=== PATIENT | male | born 1975 | race African-American/Black ===

== ENCOUNTER → 2020-04-25 10:38 | Outpatient (CLI) | payer MEDICARE, MEDICAID, SELFPAY ==
--- NOTE | ~2020-04-25 | XR_ITS ---
EXAMINATION: XR knee LT min 4V DATE: 04/25/2020 11:13 INDICATION: Left knee pain TECHNIQUE: Four views of the left knee were obtained. COMPARISON: 02/12/2018 FINDINGS: Alignment is normal. No fracture or osteochondral lesion. There is moderate tricompartmenta l osteoarthritis characterized by tiny marginal osteophytes and subchondral cyst formation. No joint effusion/synovitis. Soft tissues are unremarkable. IMPRESSION: 1. Moderate osteoarthritis without acute abnormality. Reviewed, dictated and finalized at location A. 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
--- NOTE | ~2020-04-25 | XR_ITS ---
EXAMINATION: XR knee RT min 4V DATE: 04/25/2020 11:13 INDICATION: Right knee pain TECHNIQUE: Four views of the right knee were obtained. COMPARISON: 02/13/1980 FINDINGS: Alignment is normal. No fracture or osteochondral lesion. There is mild tricompartmental os teoarthritis characterized by tiny marginal osteophytes. No joint effusion/synovitis. Soft tissues a re unremarkable. IMPRESSION: 1. Mild osteoarthritis without acute osseous abnormality. Reviewed, dictated and finalized at location A. NEERING PRODUCTION LIAISON
== END ==
PROVIDERS: Visit Provider Chiropractor
DX: M17.0 Bilateral primary osteoarthritis of knee (principal)
CPT/HCPCS: 73564